=== PATIENT | male | born 1970 | race African-American/Black ===

== ENCOUNTER 2018-08-25 17:19 | Emergency (ER) | payer OTHER ==
[2018-08-25] MEDS ORDERED: METOCLOPRAMIDE HCL INJ/PF 10 MG/2 ML SDV IV ONE (19:17)
[2018-08-25] MEDS ORDERED: RINGERS SOLUTION,LACTATED 1,000 ML IV ONE ×2 (19:17→19:59)
[2018-08-25 19:40] LABS: ALANINE AMINOTRANSFERASE 25 U/L (21-72); ALBUMIN 3.6 g/dL (3.5-5.0); ALKALINE PHOSPHATASE 74 U/L (38-126); ANION GAP 11 (5-19); ASPARTATE AMINO TRANSFERASE 22 U/L (17-59); BILIRUBIN,DIRECT 0.4 mg/dL (0.0-0.4); BLOOD UREA NITROGEN 19 mg/dL (7-20); CALCIUM 9.5 mg/dL (8.4-10.2); CARBON DIOXIDE 28 mmol/L (22-30); CHLORIDE 103 mmol/L (98-107); GLUCOSE 152 mg/dL (75-110); POTASSIUM 3.6 mmol/L (3.6-5.0); SODIUM 142.4 mmol/L (137-145); TOTAL PROTEIN 6.7 g/dL (6.3-8.2)
[2018-08-25] MEDS ORDERED: HALOPERIDOL LACTATE INJ 5 MG/1 ML VIAL IV ONE (19:58)
--- NOTE | 2018-08-25 20:05 | ER Document Report ---
ED General - General Chief Complaint: Headache Stated Complaint: HEADACHE WITH NAUSEA/VOMITING Time Seen by Provider: 08/25/18 19:16 Notes: Patient is a 48-year-old male with past medical history of insulin-dependent type 2 diabetes who presents with several years of intermittent episodes of nausea, vomiting and epigastric abdominal pain. Patient states that over the last 5 years he intimately has episodes often lasting up to 2 weeks where he has intractable nausea and vomiting with associated moderate to severe cramping, aching upper abdominal pain. Regards symptoms as being severe, constant. States that his symptoms are not improved or worsened by anything when present and then apparently resolved. He has told his primary doctor at the [facility] regarding his episodes but states no work-up has been done to further clarify why he gets these episodes. States that his most recent episode started 2 days ago and has been ongoing since that time. Denies melena or hematochezia. Denies any history of abdominal surgery. No fever or constitutional symptoms. Denies any focal abdominal pain at the time of my assessment. TRAVEL OUTSIDE OF THE [place] IN LAST 30 DAYS: No - Related Data Allergies/Adverse Reactions: No Known Allergies Allergy (Unverified 07/15/18 20:43) Past Medical History - General Information source: Patient - Social History Smoking Status: Current Every Day Smoker Chew tobacco use (# tins/day): No Frequency of alcohol use: None Drug Abuse: None Lives with: Spouse/Significant other Family History: Reviewed & Not Pertinent Patient has suicidal ideation: No Patient has homicidal ideation: No Endocrine Medical History: Reports: Hx Diabetes Mellitus Type 2 Renal/ Medical History: Denies: Hx Peritoneal Dialysis Review of Systems - Review of Systems Notes: Constitutional: Negative for fever. HENT: Negative for sore throat. Eyes: Negative for visual changes. Cardiovascular: Negative for chest pain. Respiratory: Negative for shortness of breath. Gastrointestinal: Positive abdominal cramping, vomiting Genitourinary: Negative for dysuria. Musculoskeletal: Negative for back pain. Skin: Negative for rash. Neurological: Negative for headaches, weakness or numbness. 10 point ROS negative except as marked above and in HPI. Physical Exam - Vital signs Vitals: Temp Pulse Resp BP Pulse Ox 98.0 F 93 16 176/98 H 100 08/25/18 17:28 08/25/18 17:28 08/25/18 17:28 08/25/18 17:28 08/25/18 17:28 Interpretation: Hypertensive Notes: PHYSICAL EXAMINATION: GENERAL: Appears moderately unwell but in no acute distress HEAD: Atraumatic, normocephalic. EYES: Pupils equal round and reactive to light, extraocular movements intact, sclera anicteric, conjunctiva are normal. ENT: nares patent, oropharynx clear without exudates. Dry mucous membranes. NECK: Normal range of motion, supple without lymphadenopathy LUNGS: Breath sounds clear to auscultation bilaterally and equal. No wheezes rales or rhonchi. HEART: Regular rate and rhythm without murmurs ABDOMEN: Soft, nontender, normoactive bowel sounds. No guarding, no rebound. No masses appreciated. EXTREMITIES: Normal range of motion, no pitting or edema. No cyanosis. NEUROLOGICAL: No focal neurological deficits. Moves all extremities spo ntaneously and on command. PSYCH: Normal mood, normal affect. SKIN: Warm, Dry, normal turgor, no rashes or lesions noted. Course - Re-evaluation Re-evalutation: 08/25/18 19:59 Patient presents with episodic vomiting over the last 5 years. Patient has been having nausea and vomiting for the last 2 days, states he often has episodes lasting upwards to 2 weeks. On abdominal exam he has no focal tenderness, rebound or guarding. Patient denies any abdominal pain currently. States that he had a headache last night but none currently. Nausea vomiting started prior to the headache and clinical history is not consistent with subarachnoid hemorrhage, intra-cranial mass or acute stroke. The patient has a history of diabetes previously with poor glycemic control and I suspect that he has a history of diabetic gastroparesis but has not had this fully evaluated. He has had improvement with metoclopramide. Beginning to tolerate oral fluids. Continues to complain of some nausea so haloperidol will be used as a rescue agent. The patient continues to tolerate oral intake will have him follow-up with his primary care doctor with GI referral for further evaluation. Labs otherwise unremarkable. 08/25/18 20:50 Patient has had resolution of his nausea and vomiting. Has tolerated oral intake without difficulty. Labs unremarkable. Has been started on metoclopramide as an outpatient. At this time will discharge with return precautions and follow-up recommendations. Verbal discharge instructions given a the bedside and opportunity for questions given. Medication warnings reviewed. Patient is in agreement with this plan and has verbalized understanding of return precautions and the need for primary care follow-up in the next 24-72 hours. - Vital Signs Vital signs: Temp Pulse Resp BP Pulse Ox 98.1 F 100 16 156/94 H 100 08/25/18 21:34 08/25/18 21:34 08/25/18 21:34 08/25/18 21:34 08/25/18 21:34 - Laboratory Result Diagrams: 08/25/18 17:07 Laboratory results interpreted by me: 08/25/18 08/25/18 17:07 17:07 Glucose 152 H Lipase 14.1 L Discharge - Discharge Clinical Impression: Diabetic gastroparesis, Intermittent headache Nausea and vomiting Qualifiers: Vomiting type: unspecified Vomiting Intractability: non-intractable Qualified Code(s): R11.2 - Nausea with vomiting, unspecified Condition: Good Disposition: HOME, SELF-CARE Additional Instructions: You you have been first need to follow-up with your primary care doctor and have a referral to GI medicine as I am concerned that you have diabetic gastroparesis that is continuing to cause your episodes of vomiting. You have been prescribed Reglan which you can use at home to try to prevent these episodes from getting out of control. Your labs otherwise reassuring today. Please return if you develop worsening or vomiting, become unable to tolerate oral fluids, pass out, or have any other symptoms that are worrisome to you. Prescriptions: Metoclopramide HCl [Reglan 10 mg Tablet] 10 mg PO ACHS #120 tablet
[2018-08-25 20:31] LABS: LIPASE 14.1 U/L (23-300)
[2018-08-25 21:35] VITALS: BP 156/94
== END 2018-08-25 21:34 | disposition home or self-care (01) ==
LOC: ER 17:19
DX: E11.43 Type 2 diabetes mellitus with diabetic autonomic (poly)neuropathy (principal); K31.84 Gastroparesis; R11.2 Nausea with vomiting, unspecified; R10.13 Epigastric pain; F17.200 Nicotine dependence, unspecified, uncomplicated; R51 Headache
CPT/HCPCS: 99284; 96361; 96374; 96375; 36415; 83690; 80053; J1630; J2765; J7120

== ENCOUNTER 2019-01-06 13:12 | Emergency (ER) | payer OTHER ==
--- NOTE | 2019-01-06 13:45 | ER Document Report ---
ED Medical Screen (RME) - General Chief Complaint: Nausea/Vomiting Stated Complaint: VOMITING Time Seen by Provider: 01/06/19 13:42 Mode of Arrival: Ambulatory Information source: Patient Notes: 48-year-old male presents to ED for complaint of nausea and vomiting since a week ago. He is vomited 3 times today states he has pain up in his right upper quadrant flank area. States he does not know of any history of kidney stones. States his urine has been dark. He just quit smoking drinks maybe once or twice a year denies any illicit drugs. He is alert oriented respirations regular nonlabored speaking in full sentences. I have greeted and performed a rapid initial assessment of this patient. A comprehensive ED assessment and evaluation of the patient, analysis of test results and completion of medical decision making process will be conducted by an additional ED providers. TRAVEL OUTSIDE OF THE [place] IN LAST 30 DAYS: No - Related Data Allergies/Adverse Reactions: No Known Allergies Allergy (Unverified 07/15/18 20:43) Home Medications: lantus insulin once a day Past Medical History Endocrine Medical History: Reports: Hx Diabetes Mellitus Type 2 Renal/ Medical History: Denies: Hx Peritoneal Dialysis Physical Exam - Vital signs Vitals: Temp Pulse Resp BP Pulse Ox 98.2 F 80 16 159/111 H 97 01/06/19 13:27 01/06/19 13:27 01/06/19 13:27 01/06/19 13:27 01/06/19 13:27 Course - Vital Signs Vital signs: Temp Pulse Resp BP Pulse Ox 98.2 F 80 16 159/111 H 97 01/06/19 13:27 01/06/19 13:27 01/06/19 13:27 01/06/19 13:27 01/06/19 13:27
[2019-01-06] MEDS ORDERED: ONDANSETRON 4 MG TAB.RAPDIS PO ONE (13:46)
[2019-01-06 14:15] LABS: ABSOLUTE EOSINOPHILS # (AUTO) 0.1 10^3/uL (0.0-0.6); ABSOLUTE MONOCYTES (AUTO) 0.6 10^3/uL (0.1-1.4); ABSOLUTE NEUT (AUTO) 3.1 10^3/uL (1.7-8.2); BASOPHILS % (AUTO) 0.8 % (0-2); EOSINOPHILS % (AUTO) 2.3 % (0-6); HEMATOCRIT 42.3 % (37.9-51.0); HEMOGLOBIN 14.1 g/dL (13.5-17.0); LYMPHOCYTES % (AUTO) 33.8 % (13-45); MEAN CORPUSCULAR HEMOGLOBIN 29.9 pg (27.0-33.4); MEAN CORPUSCULAR HGB CONC 33.3 g/dL (32.0-36.0); MEAN CORPUSCULAR VOLUME 90 fl (80-97); MONOCYTES % (AUTO) 10.8 % (3-13); PLATELET COUNT 193 10^3/uL (150-450); RED CELL DISTRIBUTION WIDTH 12.6 % (11.5-14.0); SEGMENTED NEUTROPHILS % (AUTO) 52.3 % (42-78); TOTAL CELLS COUNTED % (AUTO) 100 %
[2019-01-06 14:19] LABS: APPEARANCE,URINE SLIGHTLY-CLOUDY; BILIRUBIN,URINE NEGATIVE (NEGATIVE); GLUCOSE, URINE 50 mg/dL (NEGATIVE); KETONES,URINE NEGATIVE (NEGATIVE); PROTEIN,URINE >=500 mg/dL (NEGATIVE); URINE SPECIFIC GRAVITY 1.024
[2019-01-06 14:20] LABS: COLOR,URINE YELLOW
[2019-01-06 14:36] LABS: ALBUMIN 3.7 g/dL (3.5-5.0); ALKALINE PHOSPHATASE 69 U/L (38-126); ANION GAP 6 (5-19); ASPARTATE AMINO TRANSFERASE 25 U/L (17-59); BILIRUBIN,DIRECT 0.1 mg/dL (0.0-0.4); BILIRUBIN,TOTAL 0.6 mg/dL (0.2-1.3); BLOOD UREA NITROGEN 18 mg/dL (7-20); CALCIUM 9.1 mg/dL (8.4-10.2); CARBON DIOXIDE 36 mmol/L (22-30); CHLORIDE 93 mmol/L (98-107); GLUCOSE 170 mg/dL (75-110)
--- NOTE | 2019-01-06 16:04 | RADIOLOGY REPORT (SQ) ---
EXAM DESCRIPTION: U/S ABDOMEN LIMITED W/O DOP COMPLETED DATE/TIME: 01/06/2019 2:56 pm REASON FOR STUDY: right upper ab/flank pain COMPARISON: None. TECHNIQUE: Dynamic and static grayscale images acquired of the abdomen and recorded on PACS. Additio nal selected color Doppler and spectral images recorded. LIMITATIONS: None. FINDINGS: PANCREAS: Head of the pancreas is normal. Body and tail not well seen. LIVER: No masses. Echotexture normal. LIVER VASCULATURE: Normal directional flow of the main portal vein and hepatic veins. GALLBLADDER: No stones. Normal wall thickness. No pericholecystic fluid. ULTRASOUND-DETECTED RODRIGUEZ'S SIGN: Negative. INTRAHEPATIC DUCTS AND COMMON DUCT: CBD and intrahepatic ducts normal caliber. No filling defects. INFERIOR VENA CAVA: Normal flow. AORTA: No aneurysm. RIGHT KIDNEY: Normal size, 10 cm. Normal echogenicity. No solid or suspicious masses. No hydronephr osis. No calcifications. PERITONEAL AND RIGHT PLEURAL SPACE: No ascites or effusions. OTHER: No other significant findings. IMPRESSION: NORMAL RIGHT UPPER QUADRANT ULTRASOUND. TECHNICAL DOCUMENTATION: JOB ID: [id number] W4- All Rights Reserved Reading location - IP/workstation name: [email or web address]
[2019-01-06] MEDS ORDERED: METOCLOPRAMIDE HCL 10 MG TABLET PO ONE (17:08)
--- NOTE | 2019-01-06 17:14 | ER Document Report ---
ED General - General Chief Complaint: Nausea/Vomiting Stated Complaint: VOMITING Time Seen by Provider: 01/06/19 13:42 Primary Care Provider: BREONNA,KIMBERLY [Primary Care Provider] - Follow up as needed Mode of Arrival: Ambulatory TRAVEL OUTSIDE OF THE [place] IN LAST 30 DAYS: No - HPI Notes: Patient is a 48-year-old male with a history of insulin-dependent type 2 diabetes who presents with several years of intermittent episodes of nausea, vomiting and epigastric abdominal pain. Patient states that over the last 6 years he intermittently has episodes often lasting up to 2 weeks where he has intractable nausea and vomiting with associated moderate to severe cramping, aching upper abdominal pain. Patient states that this time around he had more right flank pain that did not radiate and was intermittent. Patient states that the pain has since resolved. This episode of nausea and vomiting has lasted for the past week. He does not take any medicines for nausea otherwise. He has not seen any specialist for this issue in the past. Patient states that he does smoke marijuana on occasion. He was given Zofran in triage, and is feeling much better. He has not had any episodes of emesis throughout his stay. He did have 3 episodes of emesis today. He is urinating normally and having normal bowel movements. Denies any headache, fever, neck pain, URI, sore throat, chest pain, palpitations, syncope, cough, shortness of breath, wheeze, dyspnea, abdominal pain, diarrhea, urinary retention, dysuria, hematuria, loss of control of bowel or bladder, numbness/tingling, saddle anesthesia, muscle paralysis/weakness, or rash. - Related Data Allergies/Adverse Reactions: No Known Allergies Allergy (Unverified 07/15/18 20:43) Home Medications: lantus insulin once a day Past Medical History - General Information source: Patient - Social History Smoking Status: Current Some Day Smoker Family History: Reviewed & Not Pertinent Patient has suicidal ideation: No Patient has homicidal ideation: No Endocrine Medical History: Reports: Hx Diabetes Mellitus Type 2 Renal/ Medical History: Denies: Hx Peritoneal Dialysis Review of Systems - Review of Systems -: Yes All other systems reviewed and negative Physical Exam - Vital signs Vitals: Temp Pulse Resp BP Pulse Ox 98.2 F 80 16 159/111 H 97 01/06/19 13:27 01/06/19 13:27 01/06/19 13:27 01/06/19 13:27 01/06/19 13:27 - Notes Notes: PHYSICAL EXAMINATION: GENERAL: Well-appearing, well-nourished and in no acute distress. HEAD: Atraumatic, normocephalic. EYES: Pupils equal round and reactive to light, extraocular movements intact, sclera anicteric, conjunctiva are normal. ENT: Nares patent and without discharge. oropharynx clear without exudates. No tonsilar hypertrophy or erythema. Moist mucous membranes. NECK: Normal range of motion, supple without lymphadenopathy LUNGS: Breath sounds clear to auscultation bilaterally and equal. No wheezes rales or rhonchi. HEART: Regular rate and rhythm without murmurs, rubs, gallops. ABDOMEN: Soft, nontender, nondistended abdomen. No guarding, no rebound. Normal bowel sounds present. No CVA tenderness bilaterally. Katz neg. No t enderness at [place]. Musculoskeletal: FROM to passive/active. Strength 5+/5. Extremities: No cyanosis, clubbing, or edema b/l. Peripheral pulses 2+. Capillary refill less than 3 seconds. NEUROLOGICAL: Normal speech, normal gait. PSYCH: Normal mood, normal affect. SKIN: Warm, Dry, normal turgor, no rashes or lesions noted. Course - Re-evaluation Re-evalutation: 01/06/19 17:14 Patient is an afebrile, well-hydrated, 48-year-old male who presents with nausea and vomiting acute on chronic with resolved right flank pain. Vitals are acceptable without significant tachycardia, tachypnea, or hypoxia. PE is other [place] unremarkable. Patient's abdomen is soft and nontender throughout. He is nontoxic-appearing and is able to tolerate p.o. without difficulty. Labs are acceptable. I did review possibility of a kidney stone due to the right flank pain that he was having recently. Patient has opted to decline a CT at this time which I am in agreement with as he is not having any pain and urine was without infection. He did have microscopic hematuria noted which I did review with the patient and he needs to have followed up with his family provider as well as his worst case scenario is cancer. Low suspicion/risk for acute appendicitis, bowel obstruction, acute cholecystitis, perforated diverticulitis, incarcerated hernia, pancreatitis, perforated ulcer, peritonitis, sepsis, testicular torsion, or other systemic emergent condition at this time. Patient is aware that his condition can change from initial presentation and he needs to monitor symptoms closely and seek medical attention if any acute changes. Conservative measures otherwise for symptoms. Recheck with PCM in 2-3 days. Consider consult with a controls project engineer/urology. Return to the ED with any worsening/concerning symptoms otherwise as reviewed in discharge. Patient is in agreement. - Vital Signs Vital signs: Temp Pulse Resp BP Pulse Ox 98.2 F 80 16 159/111 H 97 01/06/19 13:27 01/06/19 13:27 01/06/19 13:27 01/06/19 13:27 01/06/19 13:27 - Laboratory Result Diagrams: 01/06/19 13:47 01/06/19 13:47 Laboratory results interpreted by me: 01/06/19 01/06/19 13:47 13:47 Sodium 135.3 L Chloride 93 L Carbon Dioxide 36 H Glucose 170 H Urine Protein >=500 H Urine Glucose (UA) 50 H Urine Blood SMALL H Urine Urobilinogen 4.0 H Discharge - Discharge Clinical Impression: Nausea and vomiting Qualifiers: Vomiting type: unspecified Vomiting Intractability: non-intractable Qualified Code(s): R11.2 - Nausea with vomiting, unspecified Condition: Stable Disposition: HOME, SELF-CARE Instructions: Antinausea Medication ([facility]), Vomiting ([facility]) Additional Instructions: He should follow-up for the microscopic blood noted in your urine. It is most likely a benign finding, but worse case scenario could be secondary to cancer. Maintain adequate fluid and food intake Shannon diet ([employer] Bananas, rice, apples, toast, etc Zofran as needed tylenol if needed Monitor for any worsening symptoms Make sure you are staying hydrated enough to urinate and have normal BM's Recheck with your PCM in 2-3 days Consider consult with Gastroenterology/Urology for ongoing/worsening symptoms Return to the ED with any worsening symptoms and/or development of fever, headache, chest pain, palpitations, syncope, shortness of breath, trouble breathing, abdominal pain, n/v/d, blood in stool/urine, weakness, or other worsening symptoms that are concerning to you. Prescriptions: Metoclopramide HCl [Reglan] 10 mg PO BID PRN #10 tablet PRN Reason: Forms: Return to Work, Elevated Blood Pressure Referrals: [facility] [Primary Care Provider] - Follow up in 3-5 days [facility] [Provider Group] - Follow up as needed JASON ROJO MD [ACTIVE STAFF] - Follow up as needed SANJUANA GASPAR MD [ACTIVE STAFF] - Follow up as needed
[2019-01-06 17:26] VITALS: BP 149/90
== END 2019-01-06 17:26 | disposition home or self-care (01) ==
LOC: ER 13:12
DX: R11.2 Nausea with vomiting, unspecified (principal); R10.13 Epigastric pain; R10.9 Unspecified abdominal pain; R31.29 Other microscopic hematuria; F17.200 Nicotine dependence, unspecified, uncomplicated; E11.9 Type 2 diabetes mellitus without complications; Z79.4 Long term (current) use of insulin
CPT/HCPCS: 99284; 36415; 83690; 85025; 80053; 81001; 76705; S0119

== ENCOUNTER 2020-03-02 18:27 | Emergency (ER) | payer OTHER ==
[2020-03-02] MEDS ORDERED: PROCHLORPERAZINE EDISYLATE INJ 10 MG/2 ML VIAL IV ONE (19:01)
[2020-03-02] MEDS ORDERED: NORMAL SALINE 1000 ML 1,000 ML IV ONE ×2 (19:01→22:14)
--- NOTE | 2020-03-02 19:12 | ER Document Report ---
ED Medical Screen (RME) - General Chief Complaint: Nausea/Vomiting Stated Complaint: NAUSEA,VOMITING Time Seen by Provider: 03/02/20 18:57 Primary Care Provider: BREONNA,KIMBERLY [Primary Care Provider] - Follow up as needed TRAVEL OUTSIDE OF THE [place] IN LAST 30 DAYS: No - HPI Notes: 03/02/20 19:01 49-year-old male insulin-dependent type 2 diabetic presents to the emergency room via EMS for evaluation of having nausea and vomiting for the last 4 days. Patient states he does have periodic episodes where he has nausea and vomiting. He states he has had this at least twice a year for the last several years. Has never been seen by kitchenhand. Was given in route 4 mg of Zofran ODT and fluids. He states this did help some. Denies any abdominal pain, chest pain, shortness of breath, headache, fevers chills. Covid negative, done by EMS. I have greeted and performed a rapid initial assessment of this patient. A comprehensive ED assessment and evaluation of the patient, analysis of test results and completion of the medical decision making process will be conducted by additional ED providers. PHYSICAL EXAMINATION: GENERAL: Acutely ill well-nourished and in no acute distress. HEAD: Atraumatic, normocephalic. EYES: Pupils equal round extraocular movements intact, conjunctiva are normal. NECK: Normal range of motion CV: s1, s2 regular LUNGS: No respiratory distress abd: generalized abd pain. The patient was evaluated during a global COVID-19 pandemic and that diagnosis was suspected/considered upon their initial presentation. Their evaluation, treatment and testing was consistent with current guidelines for patients who present with complaints or symptoms and may be related to COVID-19. - Related Data Allergies/Adverse Reactions: No Known Allergies Allergy (Unverified 07/15/18 20:43) Past Medical History Endocrine Medical History: Reports: Hx Diabetes Mellitus Type 2 Renal/ Medical History: Denies: Hx Peritoneal Dialysis Physical Exam - Vital signs Vitals: Temp Pulse Resp BP Pulse Ox 100.1 F 86 20 118/82 98 03/02/20 18:34 03/02/20 18:34 03/02/20 18:34 03/02/20 18:34 03/02/20 18:34 Course - Vital Signs Vital signs: Temp Pulse Resp BP Pulse Ox 100.1 F 86 20 118/82 98 03/02/20 18:34 03/02/20 18:34 03/02/20 18:34 03/02/20 18:34 03/02/20 18:34 Doctor's Discharge - Discharge Referrals: [facility] [Primary Care Provider] - Follow up as needed
[2020-03-02 19:44] LABS: ABSOLUTE BASOPHILS # (AUTO) 0.1 10^3/uL (0.0-0.2); ABSOLUTE LYMPHOCYTES (AUTO) 2.5 10^3/uL (0.5-4.7); ABSOLUTE MONOCYTES (AUTO) 0.6 10^3/uL (0.1-1.4); ABSOLUTE NEUT (AUTO) 4.8 10^3/uL (1.7-8.2); BASOPHILS % (AUTO) 0.7 % (0-2); EOSINOPHILS % (AUTO) 0.2 % (0-6); HEMATOCRIT 46.6 % (37.9-51.0); HEMOGLOBIN 16.1 g/dL (13.5-17.0); LYMPHOCYTES % (AUTO) 31.2 % (13-45); MEAN CORPUSCULAR HEMOGLOBIN 30.6 pg (27.0-33.4); MEAN CORPUSCULAR HGB CONC 34.4 g/dL (32.0-36.0); MEAN CORPUSCULAR VOLUME 89 fl (80-97); MONOCYTES % (AUTO) 7.9 % (3-13); PLATELET COUNT 256 10^3/uL (150-450); RED BLOOD COUNT 5.25 10^6/uL (4.35-5.55); RED CELL DISTRIBUTION WIDTH 12.9 % (11.5-14.0); TOTAL CELLS COUNTED % (AUTO) 100 %; WHITE BLOOD COUNT 8.1 10^3/uL (4.0-10.5)
[2020-03-02 19:46] LABS: APPEARANCE,URINE CLEAR; BILIRUBIN,URINE NEGATIVE (NEGATIVE); COLOR,URINE AMBER; GLUCOSE, URINE 50 mg/dL (NEGATIVE); KETONES,URINE TRACE mg/dL (NEGATIVE); LEUKOCYTE ESTERASE,URINE NEGATIVE (NEGATIVE); NITRITE,URINE NEGATIVE (NEGATIVE); PROTEIN,URINE >=500 mg/dL (NEGATIVE); URINE SPECIFIC GRAVITY 1.024
[2020-03-02 20:05] LABS: ALBUMIN 4.1 g/dL (3.5-5.0); ALKALINE PHOSPHATASE 95 U/L (38-126); ANION GAP 7 (5-19); ASPARTATE AMINO TRANSFERASE 59 U/L (17-59); BILIRUBIN,DIRECT 0.3 mg/dL (0.0-0.4); BILIRUBIN,TOTAL 1.8 mg/dL (0.2-1.3); BLOOD UREA NITROGEN 25 mg/dL (7-20); CALCIUM 9.1 mg/dL (8.4-10.2); CARBON DIOXIDE 37 mmol/L (22-30); CHLORIDE 92 mmol/L (98-107); GLUCOSE 163 mg/dL (75-110); POTASSIUM 3.4 mmol/L (3.6-5.0); TOTAL PROTEIN 8.1 g/dL (6.3-8.2)
[2020-03-02 22:17] VITALS: BP 121/71
[2020-03-02] MEDS ORDERED: ONDANSETRON ODT 4 MG TAB (6 TAB/ER DISP) PO PRN (22:22)
--- NOTE | 2020-03-02 22:23 | ER Document Report ---
ED General - General Chief Complaint: Nausea/Vomiting Stated Complaint: NAUSEA,VOMITING Time Seen by Provider: 03/02/20 18:57 Primary Care Provider: JASON ROJO MD [ACTIVE STAFF] - Follow up as needed [facility] [Primary Care Provider] - Follow up as needed Mode of Arrival: Ambulatory Information source: Patient Notes: 49-year-old male presenting with 2-day history of nausea with vomiting. Patient denies any blood in his vomit. He states this happens to him a few times a year. He denies any fever, chills, diarrhea. He denies any abdominal pain. He has not seen a packer insulation despite having this happen recurrently over the last few years. TRAVEL OUTSIDE OF THE [place] IN LAST 30 DAYS: No - Related Data Allergies/Adverse Reactions: No Known Allergies Allergy (Unverified 07/15/18 20:43) Past Medical History - General Information source: Patient - Social History Smoking Status: Never Smoker Frequency of alcohol use: Social Drug Abuse: None Family History: Reviewed & Not Pertinent Endocrine Medical History: Reports: Hx Diabetes Mellitus Type 2 Renal/ Medical History: Denies: Hx Peritoneal Dialysis Review of Systems - Review of Systems Gastrointestinal: Nausea, Vomiting -: Yes All other systems reviewed and negative Physical Exam - Vital signs Vitals: Temp Pulse Resp BP Pulse Ox 100.1 F 86 20 118/82 98 03/02/20 18:34 03/02/20 18:34 03/02/20 18:34 03/02/20 18:34 03/02/20 18:34 - Notes Notes: PHYSICAL EXAMINATION: GENERAL: Well-appearing, well-nourished and in no acute distress. HEAD: Atraumatic, normocephalic. EYES: Pupils equal round and reactive to light, extraocular movements intact, sclera anicteric, conjunctiva are normal. ENT: Nares patent, oropharynx clear without exudates. Moist mucous membranes. NECK: Normal range of motion, supple without lymphadenopathy LUNGS: Breath sounds clear to auscultation bilaterally and equal. No wheezes rales or rhonchi. HEART: Regular rate and rhythm without murmurs ABDOMEN: Soft, nontender, nondistended abdomen. No guarding, no rebound. No masses appreciated. Musculoskeletal: Normal range of motion, no pitting or edema. No cyanosis. NEUROLOGICAL: Cranial nerves grossly intact. Normal speech, normal gait. Normal sensory, motor exams PSYCH: Normal mood, normal affect. SKIN: Warm, Dry, normal turgor, no rashes or lesions noted. Course - Re-evaluation Re-evalutation: 03/02/20 22:23 All test results were discussed with patient including elevated creatinine. I told the patient I would like him to have another liter of IV fluids and then recheck a chemistry to ensure that his creatinine is improving. Patient declines this stating that he feels much improved now his nausea is gone, he has no abdominal pain and he would like to go home. We will p.o. trial him and d ischarge him as long as he is able to tolerate fluids. He does have a primary care provider that he can follow-up with. He was given very strict ED return precautions, patient verbalized understanding and agreement with same. - Vital Signs Vital signs: Temp Pulse Resp BP Pulse Ox 99.3 F 93 18 121/71 97 03/02/20 22:16 03/02/20 22:16 03/02/20 22:16 03/02/20 22:16 03/02/20 22:16 - Laboratory Results Result Diagrams: 03/02/20 19:20 03/02/20 19:20 Laboratory Results Interpreted: 03/02/20 03/02/20 03/02/20 19:15 19:20 21:49 Sodium 135.9 L Potassium 3.4 L Chloride 92 L Carbon Dioxide 37 H BUN 25 H Creatinine 1.59 H Est GFR ( Amer) 57 L Est GFR (MDRD) Non-Af 47 L Glucose 163 H POC Glucose 137 H Total Bilirubin 1.8 H ALT 62 H Lipase 21.4 L Urine Protein >=500 H Urine Glucose (UA) 50 H Urine Ketones TRACE H Urine Blood SMALL H Urine Urobilinogen 4.0 H Critical Laboratory Results Reviewed: No Critical Results - Radiology Results Critical Radiology Results Reviewed: No Critical Results Discharge - Discharge Clinical Impression: Elevated serum creatinine Nausea and vomiting Qualifiers: Vomiting type: unspecified Vomiting Intractability: unspecified Qualified Code(s): R11.2 - Nausea with vomiting, unspecified Condition: Stable Disposition: HOME, SELF-CARE Additional Instructions: Drink plenty of fluids to rehydrate yourself. Use the Zofran as prescribed for nausea or vomiting. Please have a low threshold to return to the emergency department including development of abdominal pain, development of fever or persistent vomiting not controlled with Zofran. Please consider following up with the packer insulation since you have had nausea with vomiting several times for a year. Continue taking all home medications as prescribed by your primary care provider, please schedule a follow-up with them to reevaluate you in 2 to 3 day s. I have enclosed a work note for you in case your not feeling well tomorrow, if you feel well enough to go to work you are cleared to return to work. Prescriptions: Ondansetron [Zofran Odt 4 mg Tablet] 1 - 2 tab PO Q4H PRN #15 tab.rapdis PRN Reason: For Nausea/Vomiting Forms: Return to Work Referrals: [facility] [Primary Care Provider] - Follow up as needed JASON ROJO MD [ACTIVE STAFF] - Follow up as needed
== END 2020-03-02 22:48 | disposition home or self-care (01) ==
LOC: ER 18:27
DX: R11.2 Nausea with vomiting, unspecified (principal); E11.9 Type 2 diabetes mellitus without complications; R79.89 Other specified abnormal findings of blood chemistry
CPT/HCPCS: 99284; 96361; 96374; 36415; 82962; 83690; 85025; 80053; 81001; J0780; J7030

== ENCOUNTER 2020-03-29 12:31 | Emergency (ER) | payer OTHER ==
--- NOTE | 2020-03-29 14:20 | ER Document Report ---
ED Medical Screen (RME) - General Chief Complaint: Vomiting Stated Complaint: VOMITING Time Seen by Provider: 03/29/20 14:04 Primary Care Provider: KIMBERLY RAVI [Primary Care Provider] - Follow up as needed TRAVEL OUTSIDE OF THE [place] IN LAST 30 DAYS: No - HPI Notes: Patient is a 49 y/o male with a hx of DM who presents with vomiting for the past four days. Patient has had chronic flares of vomiting and is in the process of seeing [facility] at the [facility] but does not have an appointment yet. Patient reports intermittent sharp abdominal pain and constipation. Patient has not had a bowel movement in one week. Patient has not tried eating food today and has only been able to keep down fluids. - Related Data Allergies/Adverse Reactions: No Known Allergies Allergy (Unverified 07/15/18 20:43) Past Medical History Endocrine Medical History: Reports: Hx Diabetes Mellitus Type 2 Renal/ Medical History: Denies: Hx Peritoneal Dialysis Physical Exam - Vital signs Vitals: Temp Pulse Resp BP Pulse Ox 98.8 F 80 16 120/90 H 97 03/29/20 13:34 03/29/20 13:34 03/29/20 13:34 03/29/20 13:34 03/29/20 13:34 - Abdominal Distension: No distension Bowel sounds: Normal Tenderness: Nontender Course - Re-evaluation Re-evalutation: I have greeted and performed a rapid initial assessment of this patient. A comprehensive ED assessment and evaluation of the patient, analysis of test results and completion of medical decision making process will be conducted by an additional ED providers. - Vital Signs Vital signs: Temp Pulse Resp BP Pulse Ox 98.8 F 80 16 120/90 H 97 03/29/20 13:34 03/29/20 13:34 03/29/20 13:34 03/29/20 13:34 03/29/20 13:34 Doctor's Discharge - Discharge Referrals: BREONNA,KIMBERLY [Primary Care Provider] - Follow up as needed
[2020-03-29 15:17] LABS: ABSOLUTE EOSINOPHILS # (AUTO) 0.1 10^3/uL (0.0-0.6); ABSOLUTE LYMPHOCYTES (AUTO) 2.5 10^3/uL (0.5-4.7); ABSOLUTE MONOCYTES (AUTO) 0.6 10^3/uL (0.1-1.4); ABSOLUTE NEUT (AUTO) 2.9 10^3/uL (1.7-8.2); BASOPHILS % (AUTO) 0.6 % (0-2); EOSINOPHILS % (AUTO) 1.2 % (0-6); HEMATOCRIT 39.8 % (37.9-51.0); HEMOGLOBIN 13.2 g/dL (13.5-17.0); LYMPHOCYTES % (AUTO) 41.6 % (13-45); MEAN CORPUSCULAR HEMOGLOBIN 29.5 pg (27.0-33.4); MEAN CORPUSCULAR HGB CONC 33.2 g/dL (32.0-36.0); MEAN CORPUSCULAR VOLUME 89 fl (80-97); MONOCYTES % (AUTO) 9.5 % (3-13); PLATELET COUNT 289 10^3/uL (150-450); RED BLOOD COUNT 4.48 10^6/uL (4.35-5.55); RED CELL DISTRIBUTION WIDTH 13.2 % (11.5-14.0); SEGMENTED NEUTROPHILS % (AUTO) 47.1 % (42-78); TOTAL CELLS COUNTED % (AUTO) 100 %; WHITE BLOOD COUNT 6.1 10^3/uL (4.0-10.5)
[2020-03-29 15:20] LABS: APPEARANCE,URINE SLIGHTLY-CLOUDY; BILIRUBIN,URINE NEGATIVE (NEGATIVE); COLOR,URINE AMBER; GLUCOSE, URINE 50 mg/dL (NEGATIVE); KETONES,URINE 20 mg/dL (NEGATIVE); LEUKOCYTE ESTERASE,URINE NEGATIVE (NEGATIVE); NITRITE,URINE NEGATIVE (NEGATIVE); PROTEIN,URINE >=500 mg/dL (NEGATIVE); URINE SPECIFIC GRAVITY 1.028
--- NOTE | 2020-03-29 15:28 | RADIOLOGY REPORT (SQ) ---
EXAM DESCRIPTION: KUB/ABDOMEN (SINGLE VIEW) IMAGES COMPLETED DATE/TIME: 03/29/2020 2:56 pm REASON FOR STUDY: constipation COMPARISON: None. NUMBER OF VIEWS: One view. TECHNIQUE: AP views of the abdomen were obtained. LIMITATIONS: None. FINDINGS: BOWEL GAS PATTERN: No dilated loops of bowel. CALCIFICATIONS: No calcifications projecting within the renal fossae or along the expected course of the ureters. SOFT TISSUES: No acute gross abnormality. HARDWARE: None in the abdomen. BONES: No acute abnormality. OTHER: No other findings. IMPRESSION: Nonobstructive bowel gas pattern. TECHNICAL DOCUMENTATION: JOB ID: [id number] 2010 [employer]- All Rights Reserved Reading location - IP/workstation name: [email or web address]
[2020-03-29 15:37] LABS: ALBUMIN 3.4 g/dL (3.5-5.0); ALKALINE PHOSPHATASE 79 U/L (38-126); ASPARTATE AMINO TRANSFERASE 25 U/L (17-59); BILIRUBIN,DIRECT 0.2 mg/dL (0.0-0.4); BILIRUBIN,TOTAL 0.8 mg/dL (0.2-1.3); BLOOD UREA NITROGEN 14 mg/dL (7-20); CALCIUM 8.8 mg/dL (8.4-10.2); CARBON DIOXIDE 34 mmol/L (22-30); CHLORIDE 96 mmol/L (98-107); GLUCOSE 70 mg/dL (75-110); POTASSIUM 3.7 mmol/L (3.6-5.0); TOTAL PROTEIN 6.5 g/dL (6.3-8.2)
[2020-03-29 15:42] LABS: ANION GAP 5 (5-19)
[2020-03-29] MEDS ORDERED: ONDANSETRON 4 MG TAB.RAPDIS PO ONE (20:37)
--- NOTE | 2020-03-29 20:41 | ER Document Report ---
ED GI/ - General Chief Complaint: Vomiting Stated Complaint: VOMITING Time Seen by Provider: 03/29/20 14:04 Primary Care Provider: KIMBERLY RAVI [Primary Care Provider] - Follow up tomorrow Mode of Arrival: Ambulatory Information source: Patient Notes: Patient presents complaining of nausea and vomiting for the past 4 days. Patient denies any diarrhea. Patient states he has not had any additional vomiting since early this morning. Patient denies any abdominal pain or fever. Patient denies any urinary symptoms. Patient states that he did miss work and needs a note for his employer. Patient reports feeling much better at this time. Patient states that he has taken oral fluids and solid food and kept it down without any emesis this evening. TRAVEL OUTSIDE OF THE [place] IN LAST 30 DAYS: No - HPI Patient complains to provider of: Vomiting. No: Abdominal pain, Diarrhea Onset: Other - 4 days Timing/Duration: Better Quality of pain: No pain Pain Level: Denies Associated symptoms: Nausea, Vomiting. denies: Constipation, Diarrhea, Dysuria, Urinary hesitancy, Urinary frequency, Urinary retention, Urinary urgency Exacerbated by: Denies Relieved by: Denies Similar symptoms previously: Yes Recently seen / treated by doctor: No - Related Data Allergies/Adverse Reactions: No Known Allergies Allergy (Verified 03/29/20 20:21) Home Medications: lantus, humilog Past Medical History - General Information source: Patient - Social History Smoking Status: Never Smoker Frequency of alcohol use: None Drug Abuse: None Occupation: Maintenance Family History: Reviewed & Not Pertinent Endocrine Medical History: Reports: Hx Diabetes Mellitus Type 2 Renal/ Medical History: Denies: Hx Peritoneal Dialysis Surgical Hx: Negative Review of Systems - Review of Systems Constitutional: No symptoms reported. denies: Fever EENT: No symptoms reported Cardiovascular: No symptoms reported. denies: Chest pain Respiratory: No symptoms reported. denies: Cough, Short of breath Gastrointestinal: Nausea, Vomiting. denies: Abdominal pain, Diarrhea Genitourinary: No symptoms reported. denies: Dysuria, Flank pain Male Genitourinary: No symptoms reported Musculoskeletal: No symptoms reported. denies: Back pain Skin: No symptoms reported Hematologic/Lymphatic: No symptoms reported Neurological/Psychological: No symptoms reported Physical Exam - Vital signs Vitals: Temp Pulse Resp BP Pulse Ox 98.8 F 80 16 120/90 H 97 03/29/20 13:34 03/29/20 13:34 03/29/20 13:34 03/29/20 13:34 03/29/20 13:34 - Notes Notes: PHYSICAL EXAMINATION: GENERAL: Well-appearing and in no acute distress. HEAD: Atraumatic, normocephalic. EYES: sclera anicteric, conjunctiva are normal. ENT: nares patent. Moist mucous membranes. NECK: Normal range of motion, supple without lymphadenopathy LUNGS: CTAB and equal. No wheezes rales or rhonchi. HEART: Regular rate and rhythm without murmurs ABDOMEN: Soft, nontender, normal bowel sounds, no guarding. EXTREMITIES: Normal range of motion, no pitting edema. No cyanosis. BACK: No midline tenderness, no step-off or deformity. No CVA tenderness NEUROLOGICAL: Cranial nerves grossly intact. Normal speech. PSYCH: Normal mood, normal affect. SKIN: Warm, Dry, normal turgor, no rashes or lesions noted Course - Re-evaluation Re-evalutation: 03/29/20 20:38 Patient states that during his ER stay he has had snacks from the vending machine and has drank a large glass of water. Patient states that he has been able to keep liquids and food down without emesis. Patient states he is feeling much better denies any abdominal pain at this time. Patient advised of his elevated renal function test and offered IV fluids here. Patient declines preferring to go home and push oral fluids. Patient would like a prescription for antiemetic medication at this time. Patient states that he is awaiting a GI referral from his primary doctor and will follow up with his primary doctor to h ave his labs rechecked. - Vital Signs Vital signs: Temp Pulse Resp BP Pulse Ox 98.8 F 84 18 128/68 H 100 03/29/20 17:25 03/29/20 20:59 03/29/20 20:59 03/29/20 20:59 03/29/20 20:59 - Laboratory Results Result Diagrams: 03/29/20 14:34 03/29/20 14:34 Laboratory Results Interpreted: 03/29/20 03/29/20 03/29/20 14:26 14:34 14:34 Hgb 13.2 L Sodium 134.8 L Chloride 96 L Carbon Dioxide 34 H Creatinine 1.28 H Glucose 70 L Albumin 3.4 L Lipase 21.6 L Urine Protein >=500 H Urine Glucose (UA) 50 H Urine Ketones 20 H Urine Urobilinogen 4.0 H 03/30/20 06:22 Labs- All tests 24 hr 03/29/20 03/29/20 03/29/20 14:26 14:34 14:34 WBC 6.1 RBC 4.48 Hgb 13.2 L Hct 39.8 MCV 89 MCH 29.5 MCHC 33.2 RDW 13.2 Plt Count 289 Lymph % (Auto) 41.6 [place] % (Auto) 9.5 Eos % (Auto) 1.2 Baso % (Auto) 0.6 Absolute Neuts (auto) 2.9 Absolute Lymphs (auto) 2.5 Absolute Monos (auto) 0.6 Absolute Eos (auto) 0.1 Absolute Basos (auto) 0.0 Seg Neutrophils % 47.1 Sodium 134.8 L Potassium 3.7 Chloride 96 L Carbon Dioxide 34 H Anion Gap 5 BUN 14 Creatinine 1.28 H Est GFR ( Amer) > 60 Est GFR (MDRD) Non-Af > 60 Glucose 70 L Calcium 8.8 Total Bilirubin 0.8 Direct Bilirubin 0.2 Neonat Total Bilirubin Not Reportable Neonat Direct Bilirubin Not Reportable Neonat Indirect Bili Not Reportable AST 25 ALT 21 Alkaline Phosphatase 79 Total Protein 6.5 Albumin 3.4 L Lipase 21.6 L Urine Color CHERELLE Urine Appearance SLIGHTLY-CLOUDY Urine pH 6.0 Ur Specific [place] 1.028 Urine Protein >=500 H Urine Glucose (UA) 50 H Urine Ketones 20 H Urine Blood NEGATIVE Urine Nitrite NEGATIVE Urine Bilirubin NEGATIVE Urine Urobilinogen 4.0 H Ur Leukocyte Esterase NEGATIVE Urine WBC (Auto) 4 Urine RBC (Auto) 6 U Hyaline Cast (Auto) 6 Urine Bacteria (Auto) TRACE Urine Mucus (Auto) FEW Urine Ascorbic Acid NEGATIVE Critical Laboratory Results Reviewed: No Critical Results - Radiology Results Critical Radiology Results Reviewed: No Critical Results Discharge - Discharge Clinical Impression: Dehydration, Kidney function study abnormality Nausea and vomiting Qualifiers: Vomiting type: unspecified Vomiting Intractability: non-intractable Qualified Code(s): R11.2 - Nausea with vomiting, unspecified Condition: Stable Disposition: HOME, SELF-CARE Instructions: Antinausea Medication ([facility]), Dehydration ([facility]), Intravenous (IV) Fluids ([facility]), Vomiting ([facility]) Additional Instructions: Return immediately for any new or worsening symptoms Followup with your primary care provider, call tomorrow to make a followup appointment Increase oral fluids and stay well-hydrated Your renal function test was mildly elevated today. This can be due to dehydration. See your primary doctor to have this test rechecked this week. Prescriptions: Ondansetron [Zofran Odt 4 mg Tablet] 1 tab PO Q6H #15 tab.rapdis Forms: Return to Work Referrals: [facility] [Primary Care Provider] - Follow up tomorrow
[2020-03-29 21:00] VITALS: BP 128/68
== END 2020-03-29 21:00 | disposition home or self-care (01) ==
LOC: ER 12:31
DX: R11.2 Nausea with vomiting, unspecified (principal); E86.0 Dehydration; R94.4 Abnormal results of kidney function studies; E11.9 Type 2 diabetes mellitus without complications; Z79.4 Long term (current) use of insulin
CPT/HCPCS: 99284; 36415; 83690; 85025; 80053; 81001; 74018; S0119